=== PATIENT | male | born 1980 | race Caucasian/White ===

== ENCOUNTER 2021-07-11 16:53 | Emergency (ER) | payer SELFPAY ==
[2021-07-11 20:40] VITALS: BP 112/78
== END 2021-07-12 13:54 | disposition left against medical advice (07) ==
LOC: ED 16:53
DX: I83.90 Asymptomatic varicose veins of unspecified lower extremity (principal); Z53.21 Procedure and treatment not carried out due to patient leaving prior to being seen by health care provider